=== PATIENT | male | born 1955 | race Caucasian/White ===

== ENCOUNTER → 2019-11-24 | Day surgery (SDC) | payer OTHER ==
[2019-11-20 14:38] VITALS: BMI 29.6
[2019-11-24 10:08] VITALS: TEMP 97.7
[2019-11-24 12:32] VITALS: BP 134/70; PULSE 61
== END | disposition home or self-care (01) ==
LOC: JASU-ENDO 05:13
PROVIDERS: ATTEND Internal Medicine Gastroenterology
PROC: 0DJD8ZZ Inspection of Lower Intestinal Tract, Via Natural or Artificial Opening Endoscopic (ICD-10-PCS; principal; 2019-11-24 09:00)
DX: Z12.11 Encounter for screening for malignant neoplasm of colon (principal); Z86.010 Personal history of colon polyps; K57.30 Diverticulosis of large intestine without perforation or abscess without bleeding; K64.8 Other hemorrhoids; Z80.0 Family history of malignant neoplasm of digestive organs